=== PATIENT | male | born 1955 | race Caucasian/White ===

== ENCOUNTER 2018-07-26 05:41 | Inpatient (IN) | payer BC ==
[2018-07-24 15:24] VITALS: BMI 36.4
[2018-07-26] VITALS (20 sets, daily range): BP systolic 114–146; BP diastolic 62–99; PULSE 75–94; RESP 14–20; Ht 182.9 cm; Wt 117.8 kg
[~2018-07-26] VITALS: Ht 182.9 cm; Wt 117.8 kg
[~2018-07-26 05:41] MED LIST: BUPIVACAINE 0.5% (SDV) 30 ML, morphine SULFATE (PF) 8 MG, EPINEPHrine 0.3 MG, CLONIDINE... IRR SCH; HYDR12.58 PO; OMEP20CA16 PO; TAMS-14 PO; VALS80TA2 PO
--- NOTE | 2018-07-26 05:59 | OPR ---
Date/Time of Note Date/Time of Note DATE: 07/26/18 TIME: 05:57 Operative Report Procedure Date: Jul 26, 2018 Preoperative Diagnosis Left shoulder posttraumatic arthritis with rotator cuff tear Postoperative Diagnosis 1. Left shoulder posttraumatic arthritis 2. Left shoulder acromioclavicular joint arthritis 3. Left shoulder partial biceps tendon tear 4. Left shoulder retained hardware Operation/Procedure Performed 1. Left reverse total shoulder replacement 2. Left open distal clavicular excision 3. Left shoulder open biceps tenodesis 4. Left shoulder PRP injection Surgeon see signature line Travel Writer Herb Wheat MD Second Travel Writer: DIANNE MONTOYA PA-C Anesthesia Type: general Estimated Blood Loss: 150 - 200 ml's Transfusion none Specimen None Grafts/Implants See operative note Complications none Pt Condition Post Procedure: stable Disposition: PACU Procedure Description SOFTBALL CORE MOLDER SURGEON: Herb Wheat MD was asked to be present for this case at my request. Assistance was necessary as a result of the highly technical nature of this operation. When performing an open total shoulder replacement, it is critical to have a trained ict sales assistant who is an expert in handling the extremity and assisting the surgeon in tasks such as suture management and knot-tying techniques as well as implants. This assistance cannot be performed by a corrosion technician, as it is considered an integral part of the procedure and the ict sales assistant should be compensated for his time. PROCEDURE IN DETAIL: Following the administration of general anesthesia supplemented with a peripheral nerve block for postoperative pain control, the patient was examined under anesthesia. This revealed severe stiffness and significant glenohumeral as well as subacromial crepitus. Motion was severely limited to less than 60 degrees of abduction and 45 degrees of external rotation. The prior incision was then identified and used as a portion of the subsequent incision data below. The antecubital fossa was then prepped and 60 cc of blood were aspirated. The blood was then subsequently given to the automotive sales representative from the company to prepare the PRP solution. The patient was then placed in the beach chair position. Sterile prep and drape was then undertaken of the left upper extremity. An extended deltopectoral incision was then carried through the interval exposing the conjoined tendon and retracting it medially. The superior aspect of the joint was then evaluated. Significant osteophytes were noted in the acromioclavicular joint. The acromioclavicular joint capsule was then entered and the distal clavicle skeletonized for a distance of 10 mm. Severe arthritic changes were noted. An osteotome was then used to resect 10 mm of the distal clavicle. Good decompression was confirmed. The AC joint was irrigated and closed using a #2 interrupted suture. The subscapularis was noted to be partially disrupted superiorly. Very severe arthritic changes were noted with very large peripheral osteophytes and a flattened humeral head. The superior rotator cuff was torn and retracted. In addition, the prior surgical procedure made things rather difficult as a result of the significant scarring and the significant bony block that had been created previously. The screw was noted to be just below the area where we drilled in preparation for the plate. The biceps tendon was then noted to be subluxed. The intra-articular portion was resected, and the distal aspect was then tenodesed to the bicipital groove with multiple #2 sutures. A solid bicipital tenodesis was completed. A humeral head osteotomy was then created in the appropriate degree of version and inclination. The humerus was retracted and the glenoid was exposed. Peripheral osteophytes were removed and a complete capsulectomy performed. The central canal of the glenoid was then entered and prepared for a standard Depuy baseplate. A standard Depuy baseplate was then applied with four peripheral screws and solid fixation. A 42 mm glenosphere was then applied, with solid fixation. The humerus was then reamed and prepared for a 12 mm humeral component with a standard metaphyseal component with a 3mm liner. The humeral canal was irrigated and the PRP solution was implanted within the humeral canal. The actual components were implanted with solid fixation. The arm was taken through full range of motion with no evident instability. The joint was then thoroughly irrigated, the deep tissues were approximated using #1 suture followed by closure of the deep layer using 2-0 Monocryl. The skin was closed using 4-0 Monocryl suture, and a Prenio dressing. An Ultrasling was then applied. The patient was awakened and transported to the recovery room in stable condition. Estimated blood loss for this procedure was 200 cc. Radiographs will be obtained in the recovery room. RICKIE MARTÍNEZ MD Jul 26, 2018 05:59
[2018-07-26] MEDS ORDERED: [UNRECOGNIZED DRUG - OTHER] IRR SCH ×5 (06:00)
[2018-07-26] MEDS ORDERED: TRANEXAMIC ACID 1GM/100ML(PMX) 100 ML IVPB SCH (06:00)
[2018-07-26] MEDS ORDERED: BUPIVACAINE 0.5% IRR SCH ×5 (06:00)
[2018-07-26] MEDS ORDERED: GABAPENTIN 300 MG CAP PO SCH ×2 (06:00→21:00)
[2018-07-26] MEDS ORDERED: MORPHINE SULFATE IRR SCH ×5 (06:00)
[2018-07-26] MEDS ORDERED: DEXAMETHASONE 1 MG TAB PO SCH (06:00)
[2018-07-26] MEDS ORDERED: CEFAZOLIN 2 GM/50 ML (PMX) 50 ML IVPB SCH (06:00)
[2018-07-26] MEDS ORDERED: EPINEPHRINE IRR SCH ×5 (06:00)
--- NOTE | 2018-07-26 06:03 | HPN ---
Date/Time of Note Date/Time of Note DATE: 07/26/18 TIME: 06:03 Interval H&P Admission Note Pt. seen H&P reviewed: No system changes RICKIE MARTÍNEZ MD Jul 26, 2018 06:03
--- NOTE | 2018-07-26 06:03 | HP ---
Date/Time of Note Date/Time of Note DATE: 07/26/18 TIME: 06:00 Assessment/Plan VTE Prophylaxis SCD applied (from Nsg): Yes Pharmacological prophylaxis: other (Aspirin) Lines/Catheters IV Catheter Type (from Nrsg): Saline Lock Assessment/Plan Assessment/Plan Assessment: Severe arthritis of the left shoulder Plan: Reverse total shoulder replacement HPI/ROS Admit Date/Time Admit Date/Time Jul 26, 2018 at 05:41 Hx of Present Illness Ongoing pain and stiffness in the left shoulder ROS Negative PMH/Family/Social Past Medical History History of BPH Medical History: GERD Medications Current Medications Cefazolin Sodium/ Dextrose 50 ml @ 100 mls/hr PRE-OP IVPB ; Start 07/26/18 at 06:00; Stop 07/26/18 at 19:00 Tranexamic Acid 100 ml @ 200 mls/hr Pre-op IVPB ; Start 07/26/18 at 06:00; Stop 07/26/18 at 16:00 Dexamethasone (Decadron) 2 mg PREOP PO ; Start 07/26/18 at 06:00; Stop 07/26/18 at 16:00 Gabapentin (Neurontin) 300 mg ONCE PO ; Start 07/26/18 at 06:00; Stop 07/26/18 at 16:00 Bupivacaine HCl/ Morphine Sulfate/ Epinephrine/ Sodium Chloride/ Vancomycin HCl INTRA-OP IRR ; Start 07/26/18 at 06:00 Coded Allergies: NSAIDS (Non-Steroidal Anti-Inflamma (Verified Allergy, Unknown, RASH, 07/24/18) Past Surgical History History of right total shoulder replacement as well as left knee replacement and cholecystectomy and prior back surgery Past Surgical Hx: noncontributory Social History Alcohol Use: none Smoking Status: Never smoker Drug Use: none Exam/Review of Systems Vital Signs Vitals Blood pressure 136/84, pulse 82, respirations 16 Exam Exam Normal appearance Extremities: normal pulses, calf tenderness, cyanosis, clubbing, edema, pitting pedal edema, palpable cord, tenderness (Significant shoulder stiffness and pain.), other RICKIE MARTÍNEZ MD Jul 26, 2018 06:03
[2018-07-26] MEDS ORDERED: OMEP20CA16 PO (06:57)
[2018-07-26] MEDS ORDERED: SEVOFLURANE 15 MIN ONE (07:00)
[2018-07-26] MEDS ORDERED: CEFAZOLIN 1 GM INJ ONE (07:00)
[2018-07-26] MEDS ORDERED: PHENYLephrine 10 MG INJ ONE (07:00)
--- NOTE | 2018-07-26 07:25 | PREAC ---
Date/Time of Note Date/Time of Note DATE: 07/26/18 TIME: 07:24 Anesthesia Eval and Record Evaluation Time Pre-Procedure Interview DATE: 07/26/18 TIME: 07:24 Age 62 Sex male NPO: 8 hrs Preoperative diagnosis osteoarthritis left shoulder Planned procedure open reverse left total shoulder replacement with distal clavicular excision Past Medical History Past Medical History: Includes Cardio: HTN Musculoskeletal: Osteoarthritis Renal: BPH GI: GERD, Obesity Surgery & Anesthesia Issues No known issue Meds Anticoagulation: No Beta Sherri within 24 hr: No Reason Beta Sherri not given: Pt. not on B-Sherri Reported Medications Omeprazole* (Omeprazole*) 20 Mg Capsule.dr, 20 MG PO DAILY, #30 CAP 07/26/18 Tamsulosin Hcl* (Flomax*) 0.4 Mg Cap.er.24h, 0.4 MG PO DAILY, CAP 07/24/18 Valsartan* (Diovan*) 80 Mg Tablet, 80 MG PO DAILY, TAB 07/24/18 Hydrochlorothiazide* (Hydrochlorothiazide*) 12.5 Mg Tablet, 12.5 MG PO DAILY, #30 TAB 07/24/18 Discontinued Reported Medications Omeprazole* (Omeprazole*) 20 Mg Capsule.dr, 20 MG PO DAILY 01/20/11 Hydrocodone Bit-Acetaminophen* ([place]*) 1 Tab Tab, 1 TAB PO HS 01/26/12 Zolpidem Tartrate* (Ambien*) 10 Mg Tablet, 10 MG PO HS PRN 01/20/11 Current Medications Cefazolin Sodium/ Dextrose 50 ml @ 100 mls/hr PRE-OP IVPB ; Start 07/26/18 at 06:00; Stop 07/26/18 at 19:00 Tranexamic Acid 100 ml @ 200 mls/hr Pre-op IVPB ; Start 07/26/18 at 06:00; Stop 07/26/18 at 16:00 Dexamethasone (Decadron) 2 mg PREOP PO Last administered on 07/26/18at 06:27; Admin Dose 2 MG; Start 07/26/18 at 06:00; Stop 07/26/18 at 16:00 Gabapentin (Neurontin) 300 mg ONCE PO Last administered on 07/26/18at 06:27; Admin Dose 300 MG; Start 07/26/18 at 06:00; Stop 07/26/18 at 16:00 Bupivacaine HCl/ Morphine Sulfate/ Epinephrine/ Sodium Chloride/ Vancomycin HCl INTRA-OP IRR ; Start 07/26/18 at 06:00 Meds reviewed: Yes Allergies Coded Allergies: NSAIDS (Non-Steroidal Anti-Inflamma (Verified Allergy, Unknown, RASH, 07/26/18) Allergies Reviewed: Yes Labs/Studies Labs Reviewed: Reviewed by anesthesiologist test: N/A Pre-procedure Exam Last vitals Vital Signs Date Temp Pulse Resp B/P (MAP) Pulse Ox O2 O2 Flow FiO2 Time Delivery Rate 07/26/18 97.8 80 18 138/99 97 06:43 (112) Airway: Adequate mouth opening, Adequate thyromental dist Mallampati: Mallampati II Teeth: Normal Lung: Normal Heart: Normal ASA Physical Status ASA physical status: 2 Emergency: None Planned Anesthetic General/MAC: ETT Nerve block: Brachial plexus (left) Planned Pain Management Single shot nerve block, Parenteral pain med Pre-operative Attestations Prior to commencing anesthesia and surgery, the patient was re-evaluated, there was verification of: *The patient's identity *The results of appropriate recent lab work and preoperative vital signs *The above evaluation not changing prior to induction *Anesthetic plan, risk benefits, alternative and complications discussed with patient/family; questions answered; patient/family understands, accepts and wishes to proceed. USHA WALKER MD Jul 26, 2018 07:25
[2018-07-26] MEDS ORDERED: MIDAZOLAM 1 MG/ML 2 ML INJ ONE (08:10)
[2018-07-26] MEDS ORDERED: ROPIVACAINE 0.5 % 30 ML VIAL ONE (08:10)
[2018-07-26] MEDS ORDERED: FENTAnyl 50 MCG/ML VIAL ONE (08:10)
[2018-07-26] MEDS ORDERED: TRANEXAMIC ACID 1GM/100ML(PMX) 100 ML ONE ×2 (08:59→09:32)
[2018-07-26] MEDS ORDERED: CA CHLORIDE (GM) 10% 10 ML INJ ONE (09:09)
[2018-07-26] MEDS ORDERED: POLYMYXIN/BACITRACIN 1L IRRIG ONE (09:09)
[2018-07-26] MEDS ORDERED: THROMBIN 5000 UNIT VIAL ONE (09:09)
[2018-07-26] MEDS ORDERED: LIDOCAINE 2% (SDV) 5 ML INJ ONE (09:30)
[2018-07-26] MEDS ORDERED: SUCCINYLCHOLINE CHLORIDE 100 MG/5 ML SYG IV ONE (09:30)
[2018-07-26] MEDS ORDERED: ONDANSETRON 4 MG INJ ONE (09:30)
[2018-07-26] MEDS ORDERED: DEXAMETHASONE 4 MG/ML 5 ML INJ ONE (09:30)
[2018-07-26] MEDS ORDERED: PROPOFOL 20 ML ONE (09:30)
[2018-07-26] MEDS ORDERED: ROCURONIUM 50 MG INJ ONE (09:30)
[2018-07-26] MEDS ORDERED: EPHEDrine 25 MG/5 ML SYG ONE (09:30)
[2018-07-26] MEDS ORDERED: FAMOTIDINE 20 MG INJ ONE (09:32)
[2018-07-26] MEDS ORDERED: HYDROmorphONE 2 MG/ML SYG ONE (09:42)
[2018-07-26] MEDS ORDERED: PROCHLORPERAZINE 10 MG INJ IV PRN (10:00)
[2018-07-26] MEDS ORDERED: DIPHENHYDRAMINE 50 MG INJ IV PRN ×2 (10:00→11:00)
[2018-07-26] MEDS ORDERED: MEPERIDINE 25 MG INJ IV PRN (10:00)
[2018-07-26] MEDS ORDERED: FENTAnyl 50 MCG/ML VIAL IV PRN ×3 (10:00)
[2018-07-26] MEDS ORDERED: ONDANSETRON 4 MG INJ IV PRN ×2 (10:00→11:00)
[2018-07-26] MEDS ORDERED: HYDROmorphONE 1 MG/5 ML IV SYRINGE IV PRN ×2 (10:00)
[2018-07-26] MEDS ORDERED: NEOSTIGMINE 3 MG/3 ML SYRINGE ONE (10:40)
[2018-07-26] MEDS ORDERED: GLYCOPYRROLATE 0.4 MG INJ ONE (10:40)
[2018-07-26] MEDS ORDERED: MAGNESIUM HYDROXIDE 30ML CUP PO PRN (11:00)
[2018-07-26] MEDS ORDERED: LOPERAMIDE 2 MG CAP PO PRN (11:00)
[2018-07-26] MEDS ORDERED: ZOLPIDEM 5 MG TAB PO PRN (11:00)
[2018-07-26] MEDS ORDERED: NACL 0.9% 3 ML SYG IV SCH (11:00)
[2018-07-26] MEDS ORDERED: oxyCODONE 5 MG TAB PO PRN ×2 (11:00)
[2018-07-26] MEDS ORDERED: TRANEXAMIC ACID 1GM/100ML(PMX) 100 ML IVPB ONE (11:30)
[2018-07-26] MEDS: HYDROmorphONE 1 MG/5 ML IV SYRINGE IV PRN ×2 (11:33→11:50)
--- NOTE | 2018-07-26 11:39 | PAC ---
Date/Time of Note Date/Time of Note DATE: 07/26/18 TIME: 11:38 Post-Anesthesia Notes Post-Anesthesia Note Last documented vital signs Vital Signs Date Temp Pulse Resp B/P (MAP) Pulse Ox O2 O2 Flow FiO2 Time Delivery Rate 07/26/18 Simple 6.0 11:22 Mask 07/26/18 97.8 80 18 138/99 97 06:43 (112) Activity: WNL Respiratory function: WNL Cardiovascular function: WNL Mental status: Baseline Pain reasonably controlled: Yes Hydration appropriate: Yes Nausea/Vomiting absent: Yes Comments BP: 128/68 HR: 77 RR: 15 T: 98.1 SaO2: 97% USHA WALKER MD Jul 26, 2018 11:39
--- NOTE | 2018-07-26 12:09 | PDOCDIS ---
Discharge Instructions DIAGNOSIS Discharge Diagnosis Shoulder arthritis CONDITION [id number] Patient Condition: [id number] Good HOME CARE INSTRUCTIONS: [id number] Diet Instructions: [id number] Regular ACTIVITY: [id number] Activity Restrictions: [id number] Slowly Increase Activity Keep Limb Elevated [id number] Bathing Restrictions: [id number] Shower FOLLOW UP/APPOINTMENTS Follow-up Plan 2 weeks in the office SCHOOL/WORK RELEASE May return to School/Work with: With Restrictions School/Work Release Comment: 5 pound tabletop usage for 6 weeks RICKIE MARTÍNEZ MD Jul 26, 2018 12:09
[2018-07-26] MEDS: DEXAMETHASONE 2 MG TAB PO SCH ×3 (13:36→23:12)
[2018-07-26] MEDS: oxyCODONE 5 MG TAB PO PRN ×3 (13:37→23:12)
[2018-07-26] MEDS: ACETAMINOPHEN 500 MG TAB PO SCH ×3 (13:37→23:12)
[2018-07-26] MEDS: LACTATED RINGER'S 1,000 ML IV SCH ×3 (13:38→18:42)
[2018-07-26] MEDS: CEFAZOLIN 1 GM/50 ML (PMX) 50 ML IVPB SCH ×2 (16:21→23:12)
[2018-07-26] MEDS: SENNA/DOCUSATE NA (8.6MG/50MG) TAB PO SCH (21:14)
[2018-07-27 00:10] VITALS: BP 140/75; PULSE 72; RESP 20
[2018-07-27 00:20] VITALS: BP 129/63; PULSE 72
[2018-07-27] MEDS: HYDROmorphONE 1 MG/ML SYG IV PRN ×2 (01:36→09:36)
[2018-07-27] MEDS: LACTATED RINGER'S 1,000 ML IV SCH ×2 (01:36→09:30)
[2018-07-27] MEDS ORDERED: PANTOPRAZOLE (EC) 40 MG TAB PO SCH (06:00)
--- NOTE | 2018-07-27 06:08 | PN ---
Date/Time of Note Date/Time of Note DATE: 07/27/18 TIME: 06:08 Subjective Awake and alert with no complaints. Objective Vitals Vital Signs Date Temp Pulse Resp B/P (MAP) Pulse Ox O2 O2 Flow FiO2 Time Delivery Rate 07/27/18 72 129/63 00:20 (85) 07/27/18 98.0 20 98 Nasal 00:10 Cannula 07/26/18 2.0 20:15 Intake and Output 07/26/18 07/26/18 07/27/18 1515:00 23:00 07:00 IntakeIntake Total 1540 ml 370 ml 1790 ml OutputOutput Total 450 ml 500 ml BalanceBalance 1090 ml -130 ml 1790 ml Wound is clean and dry. Neurologically intact. No signs of DVT. Medications Medications Current Medications Lactated Ringer's 1,000 ml @ 150 mls/hr Q6H40M IV Last administered on at 01:36; Admin Dose 150 MLS/HR; Start 07/26/18 at 07:26 Hydrochlorothiazide (Hydrochlorothiazide) 12.5 mg DAILY PO ; Start 07/27/18 at 09:00 Tamsulosin HCl (Flomax) 0.4 mg DAILY PO ; Start 07/27/18 at 09:00 Pantoprazole (Protonix Tab) 40 mg DAILY@06 PO ; Start 07/27/18 at 06:00 Cefazolin Sodium 50 ml @ 100 mls/hr Q8H IVPB Last administered on 07/26/18at 23:12; Admin Dose 100 MLS/HR; Start 07/26/18 at 15:00; Stop 07/27/18 at 07:29 Senna/Docusate Sodium (Senokot-S) 1 tab BID PO Last administered on 07/26/18at 21:14; Admin Dose 1 TAB; Start 07/26/18 at 21:00 Simethicone (Mylicon) 80 mg TID PRN PO .GAS; Start 07/26/18 at 11:00 Magnesium Hydroxide (Milk Of Mag) 30 ml BID PRN PO .CONSTIPATION; Start 07/26/18 at 11:00 Loperamide HCl (Imodium Cap) 2 mg Q6H PRN PO .DIARRHEA; Start 07/26/18 at 11:00 Gabapentin (Neurontin) 300 mg HS PO Last administered on 07/26/18at 21:14; Admin Dose 300 MG; Start 07/26/18 at 21:00 Acetaminophen (Tylenol Tab) 500 mg Q6 PO Last administered on 07/26/18at 23:12; Admin Dose 500 MG; Start 07/26/18 at 12:00 Oxycodone HCl (Roxicodone) 15 mg Q4H PRN PO .PAIN Last administered on 07/26/18 23:12; Admin Dose 15 MG; Start 07/26/18 at 11:00 Oxycodone HCl (Roxicodone) 10 mg Q4H PRN PO .PAIN; Start 07/26/18 at 11:00 Oxycodone HCl (Roxicodone) 5 mg Q4H PRN PO .PAIN; Start 07/26/18 at 11:00 Hydromorphone HCl (Dilaudid) 1 mg Q4H PRN IV .BREAKTHROUGH PAIN Last administered on 07/27/18at 01:36; Admin Dose 1 MG; Start 07/26/18 at 11:00 Ondansetron HCl (Zofran Inj) 4 mg Q6H PRN IV NAUSEA/VOMITING; Start 07/26/18 at 11:00 Diphenhydramine HCl (Benadryl) 25 mg Q6H PRN IV .PRURITUS; Start 07/26/18 at 11:00 Zolpidem Tartrate (Ambien) 10 mg HS PRN PO .INSOMNIA; Start 07/26/18 at 11:00 IV Flush (NS 3 ml) 3 ml per protocol IV Last administered on 07/26/18at 23:26; Admin Dose 3 ML; Start 07/26/18 at 11:00 Losartan Potassium (Cozaar) 50 mg DAILY PO ; Start 07/27/18 at 09:00 VTE Prophylaxis Risk score (from Nsg)>0 risk: 4 SCD applied (from Nsg): Yes Lines/Catheters IV Catheter Type: Saline Lock Tariq in Place: No Assessment/Plan Assessment/Plan Assessment: Status post reverse total shoulder Plan: Begin PT this morning discharge after RICKIE MARTÍNEZ MD Jul 27, 2018 06:08
--- NOTE | 2018-07-27 06:09 | DS ---
Date/Time of Note Date/Time of Note DATE: 07/27/18 TIME: 06:09 Discharge Summary Admission/Discharge Info Admit Date/Time Jul 26, 2018 at 05:41 Discharge Date/Time 07/27/2018 Discharge Diagnosis Shoulder arthritis Patient Condition: Good Hx of Present Illness Ongoing pain and stiffness in the left shoulder Hospital Course Admitted and underwent uncomplicated procedure. Discharge in a.m. after PT Home Meds Reported Medications Omeprazole* (Omeprazole*) 20 Mg Capsule.dr, 20 MG PO DAILY, #30 CAP 07/26/18 Tamsulosin Hcl* (Flomax*) 0.4 Mg Cap.er.24h, 0.4 MG PO DAILY, CAP 07/24/18 Valsartan* (Diovan*) 80 Mg Tablet, 80 MG PO DAILY, TAB 07/24/18 Hydrochlorothiazide* (Hydrochlorothiazide*) 12.5 Mg Tablet, 12.5 MG PO DAILY, #30 TAB 07/24/18 Discontinued Reported Medications Omeprazole* (Omeprazole*) 20 Mg Capsule.dr, 20 MG PO DAILY 01/20/11 Hydrocodone Bit-Acetaminophen* ([place]*) 1 Tab Tab, 1 TAB PO HS 01/26/12 Zolpidem Tartrate* (Ambien*) 10 Mg Tablet, 10 MG PO HS PRN 01/20/11 Follow-up Plan 2 weeks in the office Primary Care Provider Not On Staff Doctor RICKIE MARTÍNEZ MD Jul 27, 2018 06:09
[2018-07-27] MEDS: DEXAMETHASONE 2 MG TAB PO SCH (06:31)
[2018-07-27] MEDS: ACETAMINOPHEN 500 MG TAB PO SCH (06:31)
[2018-07-27] MEDS: oxyCODONE 5 MG TAB PO PRN ×2 (06:31→10:44)
[2018-07-27] MEDS: CEFAZOLIN 1 GM/50 ML (PMX) 50 ML IVPB SCH (06:32)
[2018-07-27 07:18] VITALS: BP 125/73; PULSE 70; RESP 18
[2018-07-27] MEDS ORDERED: NON-FORMULARY/PATIENT OWN MED (Valsartan* (Diovan*) 80 MG) PO SCH (09:00)
[2018-07-27] MEDS ORDERED: HYDROCHLOROTHIAZIDE 12.5 MG CAP PO SCH (09:00)
[2018-07-27] MEDS ORDERED: LOSARTAN 50 MG TAB PO SCH (09:00)
[2018-07-27] MEDS ORDERED: TAMSULOSIN (SR) 0.4 MG CAP PO SCH (09:00)
[2018-07-27] MEDS: SENNA/DOCUSATE NA (8.6MG/50MG) TAB PO SCH (09:30)
== END 2018-07-27 11:50 | disposition home or self-care (01) | DRG 483 ==
LOC: REC 05:41 → MS1 12:54
PROVIDERS: ADMIT Orthopaedic Surgery; ATTEND Orthopaedic Surgery
PROC: 0LS40ZZ Reposition Left Upper Arm Tendon, Open Approach (ICD-10-PCS; 2018-07-26)
PROC: 0RRK00Z Replacement of Left Shoulder Joint with Reverse Ball and Socket Synthetic Substitute, Open Approach (ICD-10-PCS; principal; 2018-07-26 08:00)
DX: M13.812 Other specified arthritis, left shoulder (principal); M75.102 Unspecified rotator cuff tear or rupture of left shoulder, not specified as traumatic; K21.9 Gastro-esophageal reflux disease without esophagitis; N40.0 Benign prostatic hyperplasia without lower urinary tract symptoms; I10 Essential (primary) hypertension; Z96.652 Presence of left artificial knee joint; Z96.611 Presence of right artificial shoulder joint
CPT/HCPCS: 73030; 86999; 88304; 88311; 97161; C1776; J0171; J0690; J1100; J1170; J2250; J2274; J2370; J2405; J2710; J2795; J3010; J3370; J7120